=== PATIENT | female | born 1940 | race Asian ===

== ENCOUNTER → 2018-10-31 | Day surgery (SDC) | payer BC ==
--- NOTE | 2018-11-05 12:40 | PATH ---
Surgical Pathology Report Patient Name: HANH JONES Med. Rec. #: [id number] /Age/Gender: 1940 (Age: 78) / F Account: [id number] Location: [facility] Taken: 10/31/2018 Received: 10/31/2018 Reported: 11/05/2018 Physicians: Tahir Landers M.D. Specimen(s) Received LEFT BREAST 1:00 4 CM FN CORE BIOPSY Clinical History Ultrasound findings: Probably benign Final Diagnosis BREAST, LEFT, 1:00, 4 CM, FN, CORE BIOPSY: BENIGN BREAST TISSUE SHOWING STROMAL FIBROSIS AND FOCAL APOCRINE METAPLASIA. Electronically Signed Eugenia Barker M.D. Gross Description Received in formalin, labeled "left breast 1:00 4 cm fn" are four cores of light nix tissue admixed with blood clot, ranging from 0.5-1.2 cm in length with a diameter of up to 0.2 cm. Entirely submitted in one cassette. Time to formalin fixation: 2 minutes. Total formalin fixation time: Approximately 86 hours AE/11/04/2018 ebram/11/04/2018
== END | disposition home or self-care (01) ==
LOC: FRADUS-SUR 14:31
PROVIDERS: ATTEND Surgery Surgical Oncology
PROC: 0HBU3ZX Excision of Left Breast, Percutaneous Approach, Diagnostic (ICD-10-PCS; principal; 2018-10-31)
DX: N60.32 Fibrosclerosis of left breast (principal); N64.89 Other specified disorders of breast; N63.21 Unspecified lump in the left breast, upper outer quadrant
CPT/HCPCS: 19083; 77065-TC; 87899; 88305-TC; A4648

== ENCOUNTER 2022-06-27 09:59 | Day surgery (SDC) | payer OTHER, MEDICARE ==
[2022-06-25 12:36] VITALS: BMI 24.7
[2022-06-27] MEDS ORDERED: BSS (NA/CA/MG/K) BALANCED SALT SOLUTION OPHTH SOLN 15 ML BOTTLE ONE (10:16)
[2022-06-27] MEDS ORDERED: CARBACHOL 0.01% INTRA-OCULAR 1.5 ML VIAL ONE (10:16)
[2022-06-27] MEDS ORDERED: TETRACAINE 0.5% OPHTH SOLN 2 ML BOTTLE ONE (10:16)
[2022-06-27] MEDS ORDERED: NEO/POLYMYX B SULF/DEXAMETH OPHTHALMIC 5ML BOTTLE ONE (10:16)
[2022-06-27] MEDS ORDERED: LIDOCAINE 1% P/F 10 MG/ML VIAL ONE (10:16)
[2022-06-27] MEDS: CYCLOPENTOLATE 2% OPHTH SOLN 2 ML BOTTLE ONE ×3 (11:20→11:30)
[2022-06-27] MEDS: TROPICAMIDE 1% OPHTH SOLN 15 ML BOTTLE ONE ×3 (11:20→11:30)
[2022-06-27] MEDS: CIPROFLOXACIN 0.3% EYE DROPS 5 ML BOTTLE ONE ×3 (11:20→11:30)
[2022-06-27] MEDS: PHENYLEPHRINE 2.5% OPTHALMIC DROP 2ML BOTTLE ONE ×3 (11:20→11:30)
[2022-06-27] MEDS ORDERED: MIDAZOLAM HCL 2 MG/2 ML SINGLE DOSE VIAL ONE (12:04)
[2022-06-27 12:37] VITALS: TEMP 97.4
[2022-06-27 13:05] VITALS: BP 130/72; PULSE 60; RESP 19
== END 2022-06-27 13:05 | disposition home or self-care (01) ==
LOC: FASU 09:59
PROVIDERS: ATTEND Ophthalmology
PROC: 08RJ3JZ Replacement of Right Lens with Synthetic Substitute, Percutaneous Approach (ICD-10-PCS; principal; 2022-06-27 12:13)
DX: H26.8 Other specified cataract (principal)
CPT/HCPCS: 66984; V2632

== ENCOUNTER 2022-08-09 07:34 | Day surgery (SDC) | payer OTHER, MEDICARE ==
[2022-08-06 15:04] VITALS: BMI 24.7
[2022-08-09] MEDS: PHENYLEPHRINE 2.5% OPTHALMIC DROP 2ML BOTTLE ONE ×3 (07:55→08:05)
[2022-08-09] MEDS: CIPROFLOXACIN 0.3% EYE DROPS 5 ML BOTTLE ONE ×3 (07:55→08:06)
[2022-08-09] MEDS: TROPICAMIDE 1% OPHTH SOLN 15 ML BOTTLE ONE ×3 (07:55→08:05)
[2022-08-09] MEDS: CYCLOPENTOLATE 2% OPHTH SOLN 2 ML BOTTLE ONE ×3 (07:55→08:05)
[2022-08-09] MEDS ORDERED: BSS (NA/CA/MG/K) BALANCED SALT SOLUTION OPHTH SOLN 15 ML BOTTLE ONE (08:40)
[2022-08-09] MEDS ORDERED: CARBACHOL 0.01% INTRA-OCULAR 1.5 ML VIAL ONE (08:40)
[2022-08-09] MEDS ORDERED: TETRACAINE 0.5% OPHTH SOLN 2 ML BOTTLE ONE (08:40)
[2022-08-09] MEDS ORDERED: NEO/POLYMYX B SULF/DEXAMETH OPHTHALMIC 5ML BOTTLE ONE (08:40)
[2022-08-09] MEDS ORDERED: MIDAZOLAM HCL 2 MG/2 ML SINGLE DOSE VIAL ONE (09:22)
[2022-08-09] MEDS ORDERED: ONDANSETRON 4 MG/2 ML VIAL ONE (09:23)
[2022-08-09 09:58] VITALS: BP 134/76; PULSE 61; RESP 16; TEMP 97.4
== END 2022-08-09 10:11 | disposition home or self-care (01) ==
LOC: FASU 07:34
PROVIDERS: ATTEND Ophthalmology
PROC: 08RK3JZ Replacement of Left Lens with Synthetic Substitute, Percutaneous Approach (ICD-10-PCS; principal; 2022-08-09 09:26)
DX: H26.8 Other specified cataract (principal)
CPT/HCPCS: 66984; V2632